=== PATIENT | female | born 1980 | race Caucasian/White ===

== ENCOUNTER → 2021-03-02 10:12 | Outpatient (CLI) | payer OTHER, SELFPAY | PROVIDERS: PCP Family Medicine; Visit Provider Family Medicine | DX: N39.0 Urinary tract infection, site not specified (principal) | CPT/HCPCS: 87086 ==

== ENCOUNTER 2021-06-17 13:49 | Outpatient (CLI) | payer OTHER, SELFPAY | END 2021-06-17 23:59 | disposition short-term general hospital (02) | LOC: LABSPEC 13:51 | PROVIDERS: PCP Family Medicine; Referring Provider Family Medicine; Visit Provider Family Medicine | DX: N39.0 Urinary tract infection, site not specified (principal) | CPT/HCPCS: 87086; 87088; 87186 ==

== ENCOUNTER → 2022-07-09 | Outpatient (CLI) | payer OTHER, SELFPAY ==
[2022-07-09 13:03] LABS: Absolute Lymphocyte Count 1.36 X10^3/uL (0.83-4.51); Absolute Neutrophil Count 4.6 X10^3/uL (2.0-7.7); Basophil# 0.05 X10^3/uL; Basophil% 0.8 % (0-1); Eosinophil# 0.07 X10^3/uL; Eosinophils% 1.1 % (0-5); Hemoglobin 6.5 g/dL (12.0-15.0); Lymphocyte # 1.36 X10^3/ul (0.83-4.51); Lymphocyte % 20.9 % (19-41); Mean Corp Hgb Conc 28.3 g/dL (32-36); Mean Corpuscular Hgb 20.6 pg (27.0-32.0); Mean Corpuscular Volume 72.8 fL (81-99); Mean Platelet Vol. 9.6 fl (6.2-12.0); Monocyte# 0.47 X10^3/uL; Monocyte% 7.2 % (0-10); NRBC Flagged by Analyzer 0 % (0-5); Neutrophil # 4.55 X10^3/uL (2.7-7.7); Neutrophil % 69.7 % (47-70); Platelet Count 441 K/mm3 (150-450); RBC Distribution Width CV 17.9 % (11.6-14.6); RBC Distribution Width SD 47.8 fl (35.1-43.9); Red Blood Count 3.16 M/mm3 (4.2-5.4); White Blood Count 6.5 K/mm3 (4.4-11.0)
[2022-07-09 13:19] LABS: Progesterone Level 0.41 ng/mL (See Comment)
[2022-07-09 13:50] LABS: Estradiol 104.8 pg/mL; Follicle Stimulating Hormone 6.6 mIU/mL; Luteinizing Hormone 6.2 mIU/mL; Prolactin 9.5 ng/mL; T4 Free Direct 1.16 ng/dL (0.76-1.46); Thyroid Stim Hormone (TSH) 1.05 uIU/mL (0.358-3.74)
[2022-07-15 18:34] LABS: HPV APTIMA, High Risk Negative (Negative)
== END | disposition home or self-care (01) ==
PROVIDERS: PCP Family Medicine; Visit Provider Student in an Organized Health Care Education/Training Program
DX: N93.9 Abnormal uterine and vaginal bleeding, unspecified (principal); Z12.4 Encounter for screening for malignant neoplasm of cervix
CPT/HCPCS: 36415; 82670; 83001; 83002; 84144; 84146; 84439; 84443; 85025; 87624; 88175; G0145

== ENCOUNTER → 2022-07-15 | Outpatient (CLI) | payer OTHER, SELFPAY ==
[2022-07-15 09:06] VITALS: BP 132/81; PULSE 103; RESP 14; TEMP 36.6; O2SAT 100; BMI 30.4
[2022-07-15] MEDS: 0.9% NaCl IVPB Med Flush (250 mL) 15 ML IV (09:18)
[2022-07-15] MEDS: 0.9% NaCl Peripheral Flush Adult/Peds IV (09:19)
[2022-07-15 10:43] VITALS: BP 135/87; PULSE 99; RESP 16; TEMP 36.7; O2SAT 99
== END | disposition home or self-care (01) ==
LOC: MEDOUTP 08:54
PROVIDERS: PCP Family Medicine; Referring Provider Student in an Organized Health Care Education/Training Program; Visit Provider Student in an Organized Health Care Education/Training Program
DX: N93.9 Abnormal uterine and vaginal bleeding, unspecified (principal); D50.0 Iron deficiency anemia secondary to blood loss (chronic)
CPT/HCPCS: 96365; J1756; J7050; A4216

== ENCOUNTER → 2022-07-22 | Outpatient (CLI) | payer OTHER, SELFPAY ==
[2022-07-22 10:44] VITALS: BP 135/77; PULSE 84; RESP 16; O2SAT 100
[2022-07-22 11:13] VITALS: BP 127/84; PULSE 89; RESP 16
== END | disposition home or self-care (01) ==
LOC: MEDOUTP 10:25
PROVIDERS: PCP Family Medicine; Referring Provider Student in an Organized Health Care Education/Training Program; Visit Provider Student in an Organized Health Care Education/Training Program
DX: D50.0 Iron deficiency anemia secondary to blood loss (chronic) (principal); N93.9 Abnormal uterine and vaginal bleeding, unspecified
CPT/HCPCS: 96365; J1756

== ENCOUNTER → 2022-08-04 | Outpatient (CLI) | payer OTHER, SELFPAY ==
[2022-08-04 10:18] LABS: Hematocrit 28.1 % (37-47); Hemoglobin 7.7 g/dL (12.0-15.0); Mean Corp Hgb Conc 27.4 g/dL (32-36); Mean Corpuscular Hgb 21.7 pg (27.0-32.0); Mean Corpuscular Volume 79.2 fL (81-99); Mean Platelet Vol. 9.9 fl (6.2-12.0); POSITIVE MORPHOLOGY YES; Platelet Count 456 K/mm3 (150-450); RBC Distribution Width CV 22.7 % (11.6-14.6); RBC Distribution Width SD 64.8 fl (35.1-43.9); Red Blood Count 3.55 M/mm3 (4.2-5.4); White Blood Count 4.4 K/mm3 (4.4-11.0)
[2022-08-04 10:34] LABS: Ferritin 11 ng/mL (8-252)
[2022-08-04 10:35] LABS: Scan Indicated on CBC? Y/N YES- FLAGS NOTED
== END | disposition home or self-care (01) ==
LOC: WOBLAB 08:59
PROVIDERS: PCP Family Medicine; Visit Provider Student in an Organized Health Care Education/Training Program
DX: N93.9 Abnormal uterine and vaginal bleeding, unspecified (principal)
CPT/HCPCS: 36415; 82728; 85027

== ENCOUNTER → 2022-08-05 | Outpatient (CLI) | payer OTHER, SELFPAY ==
[2022-08-05 10:33] VITALS: BP 131/74; PULSE 83; RESP 16; TEMP 36.7; O2SAT 100; BMI 30.4
[2022-08-05] MEDS: 0.9% NaCl IVPB Med Flush (250 mL) 15 ML IV (10:55)
[2022-08-05] MEDS: 0.9% NaCl Peripheral Flush Adult/Peds IV (10:58)
[2022-08-05 11:58] VITALS: BP 125/74; PULSE 80; RESP 16; TEMP 36.7
== END | disposition home or self-care (01) ==
LOC: MEDOUTP 10:26
PROVIDERS: PCP Family Medicine; Referring Provider Student in an Organized Health Care Education/Training Program; Visit Provider Student in an Organized Health Care Education/Training Program
DX: D50.0 Iron deficiency anemia secondary to blood loss (chronic) (principal); N93.9 Abnormal uterine and vaginal bleeding, unspecified
CPT/HCPCS: 96365; J1756; J7050; A4216

== ENCOUNTER → 2022-08-19 | Outpatient (CLI) | payer OTHER, SELFPAY ==
[2022-08-19 14:18] LABS: Hematocrit 30.8 % (37-47); Hemoglobin 8.9 g/dL (12.0-15.0); Mean Corp Hgb Conc 28.9 g/dL (32-36); Mean Corpuscular Hgb 23.1 pg (27.0-32.0); Mean Corpuscular Volume 79.8 fL (81-99); Mean Platelet Vol. 9.8 fl (6.2-12.0); POSITIVE MORPHOLOGY YES; Platelet Count 357 K/mm3 (150-450); RBC Distribution Width CV 23.7 % (11.6-14.6); RBC Distribution Width SD 67.8 fl (35.1-43.9); Red Blood Count 3.86 M/mm3 (4.2-5.4); White Blood Count 6.3 K/mm3 (4.4-11.0)
[2022-08-19 14:30] LABS: Scan Indicated on CBC? Y/N YES- FLAGS NOTED
[2022-08-19 14:37] LABS: Ferritin 18 ng/mL (8-252)
[2022-08-19 15:02] LABS: Differential Comment SCANNED
== END | disposition home or self-care (01) ==
LOC: WOBLAB 13:57
PROVIDERS: PCP Family Medicine; Visit Provider Student in an Organized Health Care Education/Training Program
DX: N93.9 Abnormal uterine and vaginal bleeding, unspecified (principal); D50.0 Iron deficiency anemia secondary to blood loss (chronic)
CPT/HCPCS: 36415; 82728; 85027

== ENCOUNTER → 2022-08-24 | Outpatient (CLI) | payer OTHER, SELFPAY ==
[2022-08-24] MEDS: 0.9% NaCl Peripheral Flush Adult/Peds IV (13:14)
[2022-08-24] MEDS: 0.9% NaCl IVPB Med Flush (250 mL) 15 ML IV (13:14)
[2022-08-24 13:16] VITALS: BP 126/94; PULSE 85; RESP 16; O2SAT 100
[2022-08-24 13:52] VITALS: BP 121/75; PULSE 82; RESP 16
== END | disposition home or self-care (01) ==
LOC: MEDOUTP 12:59
PROVIDERS: PCP Family Medicine; Referring Provider Student in an Organized Health Care Education/Training Program; Visit Provider Student in an Organized Health Care Education/Training Program
DX: D64.9 Anemia, unspecified (principal)
CPT/HCPCS: 96365; J1756; J7050; A4216

== ENCOUNTER → 2022-09-29 | Outpatient (CLI) | payer OTHER, SELFPAY ==
--- NOTE | 2022-09-29 | EMB_PTH ---
PATIENT: DEWAYNE WATKINS LOC: [facility] U#:[id number] AGE/SX: 42/F ROOM: RE09/29/[address]: Dr. Benita Long DO : 1980 BED: DIS: 09/29/2022 SPEC #: [id number] RECD: 09/29/22 13:22 STATUS: GAMAL REValorie #: [id number] BEBE: 09/29/22 00:[address]: Benita Long DEPT: SURGICAL PATHOLOGY RECD BY: Lauri Mcneil ENTERED: 09/29/22 13:22 SP TYPE: ENDOM BX/C ABBEY DR: Dr. Drew Haque MD Tissues: Endometrium, NOS Procedures: Surgery Specimen Level IV HEADER OPERATION: Endometrial biopsy PRE-OP DIAGNOSIS: Abnormal uterine bleeding TISSUE SUBMITTED: Endometrial biopsy MICROSCOPIC DIAGNOSIS Endometrium, biopsy: Mildly disordered proliferative endometrium. AM:tello 09/30/2022 MICROSCOPIC DESCRIPTION Slides are reviewed. GROSS DESCRIPTION Received is one container labeled with the patient's name and not further designated. The specimen consists of multiple irregular fragments of pink-concepcion soft tissue that in aggregate measure 2.0 x 2.0 x 0.1 cm. The specimen is totally submitted in one cassette. / SJ:tello 09/29/2022 TC:5 CPT: 38445
[2022-09-29 12:29] LABS: Ferritin 5 ng/mL (8-252)
[2022-09-29 12:36] LABS: Hematocrit 34.7 % (37-47); Hemoglobin 10.1 g/dL (12.0-15.0); Mean Corp Hgb Conc 29.1 g/dL (32-36); Mean Corpuscular Hgb 24.6 pg (27.0-32.0); Mean Corpuscular Volume 84.4 fL (81-99); Mean Platelet Vol. 10.2 fl (6.2-12.0); POSITIVE MORPHOLOGY YES; Platelet Count 374 K/mm3 (150-450); RBC Distribution Width CV 21.3 % (11.6-14.6); RBC Distribution Width SD 65.7 fl (35.1-43.9); Red Blood Count 4.11 M/mm3 (4.2-5.4); White Blood Count 6.7 K/mm3 (4.4-11.0)
[2022-09-29 12:45] LABS: Scan Indicated on CBC? Y/N YES- FLAGS NOTED
[2022-09-29 13:16] LABS: Differential Comment SCANNED
== END | disposition home or self-care (01) ==
LOC: WOBLAB 11:29
PROVIDERS: PCP Family Medicine; Visit Provider Student in an Organized Health Care Education/Training Program
DX: N93.9 Abnormal uterine and vaginal bleeding, unspecified (principal)
CPT/HCPCS: 36415; 82728; 85027; 88305

== ENCOUNTER → 2022-12-01 | Outpatient (CLI) | payer OTHER, SELFPAY ==
[2022-12-01 10:53] LABS: Hematocrit 36.6 % (37-47); Hemoglobin 11.1 g/dL (12.0-15.0); Mean Corp Hgb Conc 30.3 g/dL (32-36); Mean Corpuscular Hgb 26.4 pg (27.0-32.0); Mean Corpuscular Volume 87.1 fL (81-99); Mean Platelet Vol. 11.1 fl (6.2-12.0); Platelet Count 310 K/mm3 (150-450); RBC Distribution Width CV 16.8 % (11.6-14.6); White Blood Count 6.4 K/mm3 (4.4-11.0)
[2022-12-01 11:07] LABS: Ferritin 6 ng/mL (8-252)
== END | disposition home or self-care (01) ==
LOC: WOBLAB 09:59
PROVIDERS: PCP Family Medicine; Visit Provider Student in an Organized Health Care Education/Training Program
DX: N93.9 Abnormal uterine and vaginal bleeding, unspecified (principal)
CPT/HCPCS: 36415; 82728; 85027

== ENCOUNTER → 2023-05-31 | Outpatient (CLI) | payer OTHER, SELFPAY ==
--- OUTSIDE RECORDS SUMMARY | 2023-05-31 12:37 | XMS RPT_ITS | CCD ---
Author Name Unknown Address [address] [place] [address] Organization [facility] Care Team Providers Care Sheet Roller Operator Name Role Phone ARIANA ROSS Unavailable Unavailable CODYARIANA CHEN Unavailable Unavailable CODY, ARIANA D Unavailable Unavailable CODY, ARIANA D Unavailable Unavailable CODY, ARIANA D Unavailable Unavailable Allergies Allergy Classification Reported Allergen(s) Allergy Type Date of Onset Reaction(s) Facility (1 source) pseudoephedrine; Translations: [PSEUDOEPHEDRINE HCL] Drug Allergy 03-21-2011 [facility] Repository Problems Active Problems Problem Classification Problem Date Documented Da te Episodic/Chronic Unclassified (1 source) Unknown / UNK(Unknown) Onset: 11-19-2016 Past or Other Problems Problem Classification Problem Date Documented Da te Episodic/Chronic Other eye disorders (1 source) 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, left lacrimal gland; Translations: [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, left lacrimal gland] Onset: 11-11-2016 Episodic Results Test Name Value Interpretation Reference Range Facil ity Encounters Encounter Date Encounter Type Care Provider Facility Start: 02-17-2017 End: 02-18-2017 Ambulatory ARIANA Zamora [facility] Start: 01-03-2017 End: 01-05-2017 Ambulatory ARIANA Zamora [facility] Start: 11-19-2016 End: 11-19-2016 Ambulatory ARIANA [facility] Start: 11-11-2016 End: 11-11-2016 Ambulatory ARIANA Zamora [facility] Summary Purpose Family History No Family History Records Found Advance Directives No Advanced Directives Records Found Additional Source Comments INFORMATION SOURCE (unrecogn ized section and content) FOR RECORDS PERTAINING TO PATIENTS WHO ARE OR HAVE BEEN ENROLLED IN A CHEMICAL DEPENDENCY/SUBSTANCEABUSE PROGRAM, SOME INFORMATION MAY BE OMITTED. This clinical summary was aggregated from multiple sources. Caution should be exercised in using it in the provision of clinical care. This summary normalizes information from multiple sources, and as a consequence, information in this document may materially change the coding, format and clinical context of patient data. In addition, data may be omitted in some cases. CLINICAL DECISIONS SHOULD BE BASED ON THE PRIMARY CLINICAL RECORDS. [employer] provides no warranty or guarantee of the accuracy or completeness of information in this document.
[2023-05-31 15:56] LABS: Absolute Lymphocyte Count 1.91 X10^3/uL (0.83-4.51); Absolute Neutrophil Count 5.1 X10^3/uL (2.0-7.7); Basophil# 0.04 X10^3/uL; Basophil% 0.5 % (0-1); Eosinophils% 1.3 % (0-5); Hematocrit 35.5 % (37-47); Hemoglobin 10.7 g/dL (12.0-15.0); Lymphocyte # 1.91 X10^3/ul (0.83-4.51); Lymphocyte % 24.6 % (19-41); Mean Corp Hgb Conc 30.1 g/dL (32-36); Mean Corpuscular Hgb 25.8 pg (27.0-32.0); Mean Corpuscular Volume 85.7 fL (81-99); Mean Platelet Vol. 10.6 fl (6.2-12.0); Monocyte# 0.62 X10^3/uL; NRBC Flagged by Analyzer 0 % (0-5); Neutrophil # 5.08 X10^3/uL (2.7-7.7); Neutrophil % 65.3 % (47-70); Platelet Count 397 K/mm3 (150-450); RBC Distribution Width CV 15.3 % (11.6-14.6); RBC Distribution Width SD 47.7 fl (35.1-43.9); RET-HE 26.2 pg (30-35); Red Blood Count 4.14 M/mm3 (4.2-5.4); Reticulocyte Count 1.35 % (0.5-1.5); White Blood Count 7.8 K/mm3 (4.4-11.0)
[2023-05-31 16:27] LABS: Anion Gap 7 (5-15); BUN 11 mg/dL (7-18); BUN/Creat Ratio 16.1 RATIO (10-20); Calcium,Total 9.1 mg/dL (8.5-10.1); Chloride 107 mmol/L (98-107); Creatinine, Serum 0.68 mg/dL (0.55-1.02); EST Glomerular Filtration Rate 99 mL/min (>60); Est Glom Filt Rate - Afr Amer 120 mL/min (>60); Ferritin 3 ng/mL (8-252); Glucose 103 mg/dL (74-106); Iron 22 ug/dL (50-170); Iron Binding Capacity,Total 356 ug/dL (250-450); Potassium 3.8 mmol/L (3.5-5.1); Sodium Level 139 mmol/L (136-145); Thyroid Stim Hormone (TSH) 1.31 uIU/mL (0.358-3.74)
== END | disposition home or self-care (01) ==
LOC: MFPLAB 12:17
PROVIDERS: PCP Family Medicine; Visit Provider Family Medicine
DX: D64.9 Anemia, unspecified (principal); N92.0 Excessive and frequent menstruation with regular cycle
CPT/HCPCS: 36415; 80048; 82728; 83540; 83550; 84443; 85025; 85045